=== PATIENT | male | born 1980 | race Caucasian/White ===

== ENCOUNTER 2021-01-27 18:46 | Inpatient (IN) | payer OTHER ==
[~2021-01-27] VITALS: Ht 177.8 cm; Wt 89.4 kg
[2021-01-27 22:38] LABS: BASOPHIL 0.2 % (0-2); EOSINOPHIL 0 % (0-5); HCT 47.6 % (42.0-52.0); LYMPHOCYTE 4.2 % (15-48); MCHC 33.6 g/dL (32.0-36.0); MCV 86.2 fL (78.0-100.0); MONOCYTE 7.9 % (0-12); MPV 9.7 fL (6.0-9.5); NEUTROPHIL 87.3 % (41-80); NRBC 0; PLT 189 K/uL (150-400); RBC 5.52 M/uL (4.70-6.00); WBC 14.9 K/uL (4.0-10.5)
[2021-01-27 23:01] LABS: CREATININE 0.9 mg/dL (0.67-1.17); GLOBULIN (CALCULATION) 3.9 g/dL; POTASSIUM 4.1 mmol/L (3.5-5.1); TOTAL PROTEIN 7.9 g/dL (6.4-8.2)
[2021-01-28 01:00] LABS: BILIRUBIN 1+ mg/dL (NEGATIVE); BLOOD NEGATIVE Ery/uL (NEGATIVE); CLARITY CLEAR (CLEAR); COLOR YELLOW (YELLOW); GLUCOSE (U) NORMAL (NORMAL); LEUKOCYTES NEGATIVE Leu/uL (NEGATIVE); NITRITE NEGATIVE (NEGATIVE); PROTEIN 1+ mg/dL (NEGATIVE); SPECIFIC GRAVITY 1.025 (1.001-1.030); UROBILINOGEN 0.2 mg/dL (0.2-1.0)
[2021-01-28 01:14] LABS: BACTERIA TRACE; SQUAMOUS EPITHELIAL CELLS RARE; URINARY RBC RARE; URINARY WBC RARE
[2021-01-28] MEDS ORDERED: PROZAC10 MG PO (04:00)
[2021-01-28] MEDS ORDERED: TOPROL XL 50 MG50 MG PO (04:00)
[2021-01-28] MEDS ORDERED: ZANAFLEX4 M1 PO (04:01)
[2021-01-28] MEDS ORDERED: REQUIP1 MG PO (04:01)
[2021-01-28] MEDS ORDERED: DITROPAN5 MG PO (04:02)
[2021-01-28] MEDS ORDERED: PROVIGIL200 MG PO (11:48)
[2021-01-28] MEDS ORDERED: TECFIDERA240 MG PO (11:49)
[2021-01-29 06:56] LABS: BASOPHIL 0.2 % (0-2); EOSINOPHIL 0 % (0-5); HCT 42.6 % (42.0-52.0); HGB 14.1 g/dl (13.2-18.0); LYMPHOCYTE 5.9 % (15-48); MCH 28.9 pg (25.0-31.0); MCHC 33.1 g/dL (32.0-36.0); MCV 87.3 fL (78.0-100.0); MONOCYTE 9.9 % (0-12); MPV 9.5 fL (6.0-9.5); NEUTROPHIL 83.5 % (41-80); NRBC 0; PLT 142 K/uL (150-400); RBC 4.88 M/uL (4.70-6.00); RDW 12.9 % (11.5-14.0); WBC 10.9 K/uL (4.0-10.5)
[2021-01-29 07:37] LABS: ALBUMIN 2.6 g/dL (3.4-5.0); BILIRUBIN - TOTAL 1.2 mg/dL (0.2-1.0); BUN/CREAT RATIO (CALC) 17.3 RATIO; CREATININE 0.75 mg/dL (0.67-1.17); GLOBULIN (CALCULATION) 4.1 g/dL; POTASSIUM 3.9 mmol/L (3.5-5.1); TOTAL PROTEIN 6.7 g/dL (6.4-8.2)
[2021-01-30 06:14] LABS: BASOPHIL 0.2 % (0-2); EOSINOPHIL 0.2 % (0-5); HCT 40.7 % (42.0-52.0); HGB 13.5 g/dl (13.2-18.0); LYMPHOCYTE 8.4 % (15-48); MCH 28.7 pg (25.0-31.0); MCHC 33.2 g/dL (32.0-36.0); MCV 86.4 fL (78.0-100.0); MONOCYTE 10.2 % (0-12); MPV 9.5 fL (6.0-9.5); NEUTROPHIL 80.6 % (41-80); NRBC 0; PLT 160 K/uL (150-400); RBC 4.71 M/uL (4.70-6.00); RDW 12.6 % (11.5-14.0); WBC 10.1 K/uL (4.0-10.5)
[2021-01-30 07:01] LABS: ALBUMIN 2.5 g/dL (3.4-5.0); BILIRUBIN - TOTAL 1.1 mg/dL (0.2-1.0); BUN/CREAT RATIO (CALC) 18.9 RATIO; CREATININE 0.74 mg/dL (0.67-1.17); GLOBULIN (CALCULATION) 4.3 g/dL; POTASSIUM 3.9 mmol/L (3.5-5.1); TOTAL PROTEIN 6.8 g/dL (6.4-8.2)
--- NOTE | 2021-01-30 20:19 | NUR ---
TEMP NOW 101.3 AFTER ADMINISTRATION OF TYLENOL 650MG PO , WILL CONTINUE TO REASSESS TEMP. ORDER RECEIVED PER DR. GARCIA PER DULCOLOX 10 MG PO X 1 DOSE PER PT STATING NO BOWEL MOVEMENT IN OVER WEEK.
--- NOTE | 2021-01-30 20:51 | NUR ---
PT TEMP AT THIS IS 99.9 ORAL WILL CONTINUE TO MONITOR.
--- NOTE | 2021-01-31 00:48 | NUR ---
PT TEMP 98.7 ORAL TYLENOL 650 MG PO EFFECTIVE ADMINISTERED AT [id number]
[2021-01-31 06:27] LABS: BASOPHIL 0.3 % (0-2); EOSINOPHIL 0.3 % (0-5); LYMPHOCYTE 10.3 % (15-48); MCH 29.4 pg (25.0-31.0); MCHC 34.1 g/dL (32.0-36.0); MCV 86.1 fL (78.0-100.0); MPV 9.4 fL (6.0-9.5); NEUTROPHIL 76.4 % (41-80); NRBC 0; PLT 179 K/uL (150-400); RBC 4.76 M/uL (4.70-6.00); RDW 12.7 % (11.5-14.0); WBC 9.1 K/uL (4.0-10.5)
[2021-01-31 06:52] LABS: ALBUMIN 2.7 g/dL (3.4-5.0); ALKALINE PHOSHATASE 83 U/L (46-116); ALT 60 U/L (16-63); AST 34 U/L (15-37); BILIRUBIN - TOTAL 1.5 mg/dL (0.2-1.0); BUN 11 mg/dL (7-18); BUN/CREAT RATIO (CALC) 15.1 RATIO; C-REACTIVE PROTEIN >18.00 mg/dL (<=0.90); CHLORIDE 103 mmol/L (98-107); CO2 (BICARBONATE) 26 mmol/L (21-32); CREATININE 0.73 mg/dL (0.67-1.17); GLUCOSE 114 mg/dL (74-106); POTASSIUM 3.2 mmol/L (3.5-5.1); TOTAL PROTEIN 6.7 g/dL (6.4-8.2)
[2021-01-31] MEDS ORDERED: KEFLEX250 MG PO (11:38)
[2021-01-31] MEDS ORDERED: NAPROXEN500 MG PO (11:38)
[2021-01-31] MEDS ORDERED: BIO-K PLUS DR1 EACH PO (11:38)
--- NOTE | 2021-01-31 11:56 | NUR ---
01/31/21 Mr. Singh lives at home by himself. He has a dx of MS. 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 He is supported by [facility] and is part-time income. Mr. Singh uses a rollator for mobility. He reports to be able to perform his ADLS and IADLS. His family is near by and supportive. - He was educated to the [employer] and support group. Recommendations were made for Mr. Singh to inquire with [employer] as to when he will be eligible for Medicare, telephone # provided.
== END 2021-01-31 13:18 | disposition home or self-care (01) | DRG 871 ==
LOC: FER 18:46 → FMS 01-28 02:30
PROVIDERS: Emergency Medicine Emergency Medical Services; Family Medicine; Hospitalist; ADMIT Allergy & Immunology Allergy
DX: A41.01 Sepsis due to Methicillin susceptible Staphylococcus aureus (principal); J96.01 Acute respiratory failure with hypoxia; J18.9 Pneumonia, unspecified organism; J69.0 Pneumonitis due to inhalation of food and vomit; S22.41XA Multiple fractures of ribs, right side, initial encounter for closed fracture; J98.11 Atelectasis; Z20.822 Contact with and (suspected) exposure to COVID-19; G35 Multiple sclerosis; K59.03 Drug induced constipation; F17.200 Nicotine dependence, unspecified, uncomplicated; I10 Essential (primary) hypertension; Y92.002 Bathroom of unspecified non-institutional (private) residence as the place of occurrence of the external cause; W01.0XXA Fall on same level from slipping, tripping and stumbling without subsequent striking against object, initial encounter; Z79.899 Other long term (current) drug therapy
CPT/HCPCS: 36415; 36600; 71101; 71275; 80053; 80202; 81001; 82803; 83605; 84145; 84484; 85025; 85379; 86140; 87040; 87077; 87088; 87186; 93005; 93970; 94010; 97161; 97166; 97530-GP; 97535; J1170; J1650; J2270; J2405; J2543; J7030; J7050; Q9967; U0002